=== PATIENT | male | born 1980 | race Caucasian/White ===

== ENCOUNTER 2017-02-27 11:47 | Emergency (ER) | payer MEDICAID ==
[~2017-02-27] VITALS: Wt 96.8 kg
--- NOTE | 2017-02-27 14:25 | RADRPT ---
PROCEDURE: Shoulder x-ray CLINICAL INDICATION: Pain TECHNIQUE: Left shoulder 2 views COMPARISON: None FINDINGS: 2 views of the left shoulder demonstrate no displaced fracture. The humeral head articulates anatom ically with the glenoid fossa. The acromioclavicular articulation is within normal limits. Bones a re normally mineralized. Soft tissues are unremarkable. IMPRESSION: No acute fracture dislocation No significant degenerate change RPTAT: HH .Dago Lopez MD, Date Time Electronically viewed and signed by .Dago Lopez MD, on 02/27/2017 14:24 .W/
[2017-02-27] MEDS ORDERED: IBUPROFEN 800 MG TAB PO ONE (14:30)
--- NOTE | 2017-02-27 14:32 | ERD ---
ER Documentation Chief Complaint Chief Complaint LEFT SHOULDER/LOWER BACK PAIN S/P FALL 5 MONTHS AGO, AMBULATORY HPI This is a 37-year-old male presents the emergency department today complaining of some left shoulder pain and upper back pain for the past 5 months. Patient states that he had a fall from a height but did not go see a primary care doctor. States he has taken some medication for pain but is unsure of the name. Denies any fevers or chills or new trauma. ROS All systems reviewed and are negative except as per history of present illness. PMhx/Soc Medical and Surgical Hx: pt denies Medical Hx, pt denies Surgical Hx Hx Alcohol Use: No Hx Substance Use: No Hx Tobacco Use: No Smoking Status: Never smoker Physical Exam Vitals Vital Signs Date Time Temp Pulse Resp B/P Pulse Ox O2 Delivery O2 Flow Rate FiO2 02/27/17 11:49 98.0 102 18 139/84 99 Physical Exam Const: NAD Head: Atraumatic Eyes: Normal Conjunctiva ENT: Normal External Ears, Nose and Mouth. Neck: Full range of motion..~ No meningismus. No midline tenderness. Resp: Clear to auscultation bilaterally Cardio: Regular rate and rhythm, no murmurs Abd: Soft, non tender, non distended. Normal bowel sounds Skin: No petechiae or rashes Back: No midline or flank tenderness Ext: Left shoulder with no obvious deformity. No effusion. Mild tenderness palpation along medial border of scapula. Decreased range of motion with internal rotation. Pulses 2+. Distal neurovascularly intact. Neur: Awake and alert Psych: Normal Mood and Affect Results 24 hrs Current Medications Medications (Trade) Dose Ordered Sig/Megha Route PRN Reason Start Time Stop Time Status Last Admin Dose Admin Ibuprofen (Motrin) 800 mg ONCE ONCE PO 02/27/17 14:30 02/27/17 14:31 DIAGNOSTIC IMAGING REPORT Patient: BRODIE CLAYTON : 1980 Age: 37 Sex: M MR #: [id number] DOS: 02/27/17 0000 Ordering MD: CECE COTO PA-C Location: [facility] Room/Bed: PROCEDURE: Shoulder x-ray CLINICAL INDICATION: Pain TECHNIQUE: Left shoulder 2 views COMPARISON: None FINDINGS: 2 views of the left shoulder demonstrate no displaced fracture. The humeral head articulates anatomically with the glenoid fossa. The acromioclavicular articulation is within normal limits. Bones are normally mineralized. Soft tissues are unremarkable. IMPRESSION: No acute fracture dislocation No significant degenerate change RPTAT: HH .Dago Lopez MD, MD Date Time Electronically viewed and signed by .Dago Lopez MD, MD on 02/27/2017 14:24 .W/ CC: CECE COTO PA-C Procedures/[facility] This a 37-year-old male who presents emergency department today complaining of some left shoulder and upper back pain that he sustained 5 months ago after a fall from a height. Patient did have some decreased range of motion with internal rotation he was complaining of bouts of pain along medial border of the scapular and therefore I did obtain images. Per the radiology report images of the left shoulder show no acute fracture dislocation. There are no degenerative changes. Soft tissues are unremarkable. Patient has no midline tenderness in his neck or low back and I do not feel he requires imaging of those areas. His symptoms appear to be musculoskeletal in nature. Low suspicion for acute fracture dislocation. Patient was given from here in the emergency department. He will be given a prescription for Naprosyn and Flexeril for home given the location of the muscle pain and spasm. At this time the patient is stable for discharge and outpatient management. Patient should follow up with their PCP in the next 1-2 days. Given a list of community resources. They may return to the emergency department sooner for any persistent or worsening of symptoms. Patient understood and agreed with the plan. CECE COTO PA-C Feb 27, 2017 14:32
[2017-02-27] MEDS ORDERED: NAPR-260 PO (14:33)
[2017-02-27] MEDS ORDERED: CYCL-319 PO (14:33)
== END 2017-02-27 14:43 | disposition home or self-care (01) ==
LOC: FTE 11:47
DX: M25.512 Pain in left shoulder (principal); M54.5 Low back pain; M54.6 Pain in thoracic spine
CPT/HCPCS: 73030; Z7502; Z7610

== ENCOUNTER 2017-09-20 09:56 | Emergency (ER) | END 2017-09-20 12:28 | disposition home or self-care (01) ==